=== PATIENT | female | born 1950 | race Caucasian/White ===

== ENCOUNTER 2022-03-06 11:50 | Emergency (ER) | payer MEDICARE ==
[~2022-03-06] VITALS: Ht 154.9 cm; Wt 83.5 kg
[2022-03-06] MEDS ORDERED: LIDOCAINE HCL 1% LOCAL INJ 20 ML VIAL INJ ONE (12:05)
[2022-03-06] MEDS ORDERED: CLEOCIN HCL300 MG PO (12:17)
[2022-03-06] MEDS ORDERED: ULTRAM 50MG50 MG PO (12:25)
== END 2022-03-06 12:27 | disposition home or self-care (01) ==
LOC: FSED 12:16
DX: K04.7 Periapical abscess without sinus (principal); I10 Essential (primary) hypertension
CPT/HCPCS: 99283